=== PATIENT | female | born 1955 | race Caucasian/White ===

== ENCOUNTER 2017-04-12 06:37 | Day surgery (SDC) | payer MEDICAID ==
[~2017-04-12] VITALS: Ht 160 cm; Wt 81.2 kg
[2017-04-12] MEDS ORDERED: LIDOCAINE 2% 100 MG/5 ML UJET TP ONE (07:16)
== END 2017-04-12 09:15 | disposition home or self-care (01) ==
LOC: MOR 06:37 → MMU 06:42 → MOR 09:15
PROVIDERS: ATTEND Internal Medicine Gastroenterology
DX: D12.0 Benign neoplasm of cecum (principal); K64.8 Other hemorrhoids